=== PATIENT | male | born 1995 | race African-American/Black ===

== ENCOUNTER 2018-01-29 22:55 | Emergency (ER) | payer OTHER ==
[2018-01-29] MEDS ORDERED: ONDANSETRON 4 MG/2 ML VIAL ONE (23:18)
[2018-01-29] MEDS ORDERED: FAMOTIDINE 20 MG/2 ML VIAL IV ONE (23:19)
[2018-01-29] MEDS ORDERED: NA CHLORIDE 0.9% 1,000 ML ONE (23:19)
[2018-01-30 00:07] LABS: ALT/SGPT 22 U/L (12-78); AST/SGOT 18 U/L (15-37); Albumin 3.5 g/dL (3.4-5.0); Alkaline Phosphatase 92 U/L (45-117); BUN Blood Urea Nitrogen 11 mg/dL (7-18); Bicarbonate 28 mmol/L (21-32); Bilirubin Direct < 0.1 mg/dL (0-0.2); Bilirubin Total 0.2 mg/dL (0.2-1.0); Glucose Level 75 mg/dL (74-106); Lipase 84 U/L (73-393); Potassium 3.4 mmol/L (3.5-5.1); Protein, Total 6.8 g/dL (6.4-8.2); Sodium Level 147 mmol/L (136-145)
--- NOTE | 2018-01-30 01:27 | EDPHYS ---
Physician Documentation [facility] Name: Prashanth Bond Jr Age: 22 yrs Sex: Male : 1995 Arrival Date: 01/29/2018 Time: 22:58 Bed 20 Private MD: ED Physician Bertram Ambrosio HPI: 01/29 23:10 This 22 yrs old Black Male presents to ER via EMS with complaints of Abdominal Pain. cp 23:10 The patient presents with abdominal pain. cp 23:10 Onset: The symptoms/episode began/occurred yesterday. Associated signs and symptoms: cp Pertinent positives: nausea and vomiting, anorexia, Pertinent negatives: chest pain, constipation, diarrhea, fever, shortness of breath. Modifying factors: The symptoms are alleviated by nothing. Severity of pain: in the emergency department the pain is unchanged. The patient has experienced similar episodes in the past, several times. Patient admits to daily use of marijuana and reports taking Xanax yesterday. Historical: - Allergies: 23:25 No Known Allergies; ak1 - Home Meds: 23:25 None [Active]; ak1 - PMHx: 23:25 ADD/ADHD; ak1 - PSHx: 23:25 None; ak1 - Immunization history:: Adult Immunizations unknown. - Social history:: Smoking status: Patient uses tobacco products, smokes one-half pack cigarettes per day, Patient uses alcohol, 3 months [employer]. street drugs, marijuana. - Ebola Screening: : No symptoms or risks identified at this time. ROS: 23:15 Constitutional: Positive for poor PO intake, Negative for body aches, chills, fever. cp 23:15 Eyes: Negative for injury, pain, redness, and discharge. cp 23:15 ENT: Negative for drainage from ear(s), ear pain, sore throat, difficulty swallowing, difficulty handling secretions. 23:15 Cardiovascular: Negative for chest pain, edema, palpitations. 23:15 Respiratory: Negative for cough, shortness of breath, wheezing. 23:15 Abdomen/GI: Positive for abdominal pain, nausea and vomiting, anorexia, Negative for diarrhea, constipation, hematemesis, black/tarry stool, rectal bleeding. 23:15 Skin: Negative for cellulitis, rash. 23:15 Neuro: Negative for altered mental status, headache, weakness. 23:15 All other systems are negative. Exam: 23:25 Constitutional: The patient appears in no acute distress, alert, awake, cp non-diaphoretic, non-toxic, well developed, well nourished, uncomfortable. 23:25 Head/Face: Normocephalic, atraumatic. cp 23:25 Eyes: Periorbital structures: appear normal, Pupils: equal, round, and reactive to light and accomodation, Conjunctiva: normal, no exudate, no injection, Sclera: no appreciated abnormality, Lids and lashes: appear normal, bilaterally. 23:25 ENT: External ear(s): are unremarkable, Ear canal(s): are normal, clear, TM's: dullness, bilaterally, Nose: is normal, Mouth: Lips: dry, Oral mucosa: pink and intact, dry, Posterior pharynx: is normal, airway is patent. 23:25 Neck: ROM/movement: is normal, is supple, without pain, no range of motions limitations, no meningismus, no nuchal rigidity. 23:25 Chest/axilla: Inspection: normal, Palpation: is normal, no crepitus, no tenderness. 23:25 Cardiovascular: Rate: normal, Rhythm: regular. 23:25 Respiratory: the patient does not display signs of respiratory distress, Respirations: normal, no use of accessory muscles, no retractions, no splinting, no tachypnea, Breath sounds: are clear throughout, no decreased breath sounds, no stridor, no wheezing. 23:25 Abdomen/GI: Inspection: abdomen appears normal, Bowel sounds: active, all quadrants, Palpation: soft, in all quadrants, moderate abdominal tenderness, in all quadrants, rebound tenderness, is not appreciated, involuntary guarding, is not appreciated. 23:25 Back: pain, is absent, ROM is normal. 23:25 Skin: cellulitis, is not appreciated, no rash present. 23:25 Neuro: Orientation: to person, place \T\ time. Mentation: lucid, able to follow commands, Cerebellar function: is grossly normal, Motor: moves all fours, strength is normal, Sensation: no obvious gross deficits. Vital Signs: 23:20 BP 154 / 95; Pulse 77; Resp 24; Temp 99.0(O); Pulse Ox 100% on R/A; Weight 97.52 kg ak1 (R); Height 6 ft. 0 in. (182.88 cm) (R); Pain 8/10; 01/30 01:20 BP 145 / 77; Pulse 70; Resp 18; Pulse Ox 100% on R/A; Pain 0/10; ak1 01/29 23:20 Body Mass Index 29.16 (97.52 kg, 182.88 cm) ak1 MDM: 01/29 23:00 Differential diagnosis: appendicitis, cholecystitis, Cholelithiasis, gastritis, GI cp Bleed, pancreatitis, Peptic Ulcer Disease, Perf. Duodenal Ulcer, Perf. Gastric Ulcer. 23:01 Patient medically screened. cp 01/30 01:26 Data reviewed: vital signs, nurses notes, lab test result(s), radiologic studies, CT cp scan. 01:26 Response to treatment: the patient's symptoms have markedly improved after treatment, cp VSS. Nausea and vomiting resolved. Patient sleeping in exam room. Will discharge to home for continued monitoring. 01/29 23:00 Order name: Basic Metabolic Panel; Complete Time: 00:23 cp 01/29 23:00 Order name: Hepatic Function; Complete Time: 00:23 cp 01/29 23:00 Order name: Lipase; Complete Time: 00:23 cp 01/29 23:00 Order name: Magnesium; Complete Time: 00:23 cp 01/29 23:00 Order name: IV Saline Lock; Complete Time: 23:10 cp 01/30 00:05 Order name: CT Abd/Pelvis - W/Contrast: no oral contrast cp 01/30 00:50 Order name: NPO; Complete Time: 00:53 cp 01/30 01:26 Order name: PO challenge; Complete Time: 01:28 cp Administered Medications: 01/29 23:19 Drug: Zofran 4 mg Route: IVP; Site: right forearm; ak1 01/30 00:32 Follow up: Response: No adverse reaction ak1 01/29 23:20 Drug: Pepcid 20 mg Route: IVP; Site: right forearm; ak1 01/30 00:32 Follow up: Response: No adverse reaction ak1 01/29 23:20 Drug: NS 0.9% 1000 ml Route: IV; Rate: 1 bolus; Site: right forearm; ak1 01/30 00:33 Follow up: IV Status: Completed infusion ak1 Disposition: 02:51 Co-signature as Attending Physician, Bertram Ambrosio MD I agree with the assessment and tw4 plan of care. Attestation: The patient's history, exam findings, diagnostics, and a summary of any interventions or procedures was reviewed in detail with Rajeev GRACIA. Disposition: 01/30/18 01:27 Discharged to Home. Impression: Nausea and vomiting. - Condition is Stable. - Discharge Instructions: Nausea and Vomiting, Adult. - Prescriptions for Pepcid 20 mg Oral Tablet - take 1 tablet by ORAL route every 12 hours for 10 days; 20 tablet. promethazine 25 mg Oral Tablet - take 1 tablet by ORAL route every 6 hours As needed; 20 tablet. Phenergan 25 mg Rectal Suppository - insert 1 suppository by RECTAL route every 6 hours As needed; 12 suppository. - Medication Reconciliation Form, Thank You Letter, Antibiotic Education, Prescription Opioid Use form. - Follow up: Humble Nava MD; When: 2 - 3 days; Reason: Recheck today's complaints. - Problem is new. - Symptoms have improved. Signatures: Dispatcher [employer] [facility] Vilma Valadez RN RN ak1 Rajeev Simons PA PA cp Bertram Ambrosio MD MD tw4 Corrections: (The following items were deleted from the chart) 01/29 23:53 23:00 CBC+H.LAB.BRZ ordered. EDAL EDAL 23:53 23:00 Creatinine for Radiology+C.LAB.BRZ ordered. [facility] EDAL 01/30 01:37 01:27 01/30/2018 01:27 Discharged to Home. Impression: Nausea and vomiting. Condition ak1 is Stable. Forms are Medication Reconciliation Form, Thank You Letter, Antibiotic Education, Prescription Opioid Use. Follow up: Humble Nava; When: 2 - 3 days; Reason: Recheck today's complaints. Problem is new. Symptoms have improved. cp
--- NOTE | 2018-01-30 01:27 | ER ---
Nurse's Notes [facility] Name: Prashanth Bond Jr Age: 22 yrs Sex: Male : 1995 Arrival Date: 01/29/2018 Time: 22:58 Bed 20 Private MD: Diagnosis: Nausea and vomiting Presentation: 01/29 23:21 Presenting complaint: EMS states: pt with N/V and abd pain X2 days. pt admits to using ak1 Xanax yesterday and marijuana daily. pt seen in ER in 05/2017 for same s/s. pt stated last ETOH was 3 months [employer]. pt filled emesis bag en route to ER. Transition of care: patient was not received from another setting of care. Onset of symptoms was January 28, 2018. Risk Assessment: Do you want to hurt yourself or someone else? Patient reports no desire to harm self or others. Initial Sepsis Screen: Does the patient meet any 2 criteria? No. Patient's initial sepsis screen is negative. Does the patient have a suspected source of infection? No. Patient's initial sepsis screen is negative. Care prior to arrival: None. 23:21 Method Of Arrival: EMS: [facility] ak1 23:21 Acuity: ELIUD 3 ak1 Triage Assessment: 23:25 General: Appears uncomfortable, Behavior is agitated, anxious. Pain: Complains of pain ak1 in abdomen. EENT: No signs and/or symptoms were reported regarding the EENT system. Neuro: No deficits noted. Cardiovascular: No deficits noted. Respiratory: No deficits noted. GI: Abdomen is flat, Bowel sounds present X 4 quads. Reports lower abdominal pain, upper abdominal pain, nausea, vomiting. : No signs and/or symptoms were reported regarding the genitourinary system. Derm: No signs and/or symptoms reported regarding the dermatologic system. Musculoskeletal: No signs and/or symptoms reported regarding the musculoskeletal system. Historical: - Allergies: 23:25 No Known Allergies; ak1 - Home Meds: 23:25 None [Active]; ak1 - PMHx: 23:25 ADD/ADHD; ak1 - PSHx: 23:25 None; ak1 - Immunization history:: Adult Immunizations unknown. - Social history:: Smoking status: Patient uses tobacco products, smokes one-half pack cigarettes per day, Patient uses alcohol, 3 months [employer] drugs, marijuana. - Ebola Screening: : No symptoms or risks identified at this time. Screenin:26 Abuse screen: Denies threats or abuse. Denies injuries from another. Nutritional ak1 screening: No deficits noted. Tuberculosis screening: No symptoms or risk factors identified. Fall Risk None identified. Assessment: 23:28 Reassessment: Patient appears in no apparent distress at this time. No changes from ak1 previously documented assessment. see triage assessment. 23:28 GI: Abd is soft X 4 quads Abdomen is tender to palpation X 4 quads. ak1 01/30 00:47 Reassessment: pt rude in CT. pt returned and refused lab draw. pt demanding water, ak1 started drinking out of faucet. provider notified. 01:30 Reassessment: pt tolerated water, no vomiting noted. pt ambulated to restroom with ak1 steady gait. . Vital Signs: 01/29 23:20 BP 154 / 95; Pulse 77; Resp 24; Temp 99.0(O); Pulse Ox 100% on R/A; Weight 97.52 kg ak1 (R); Height 6 ft. 0 in. (182.88 cm) (R); Pain 8/10; 01/30 01:20 BP 145 / 77; Pulse 70; Resp 18; Pulse Ox 100% on R/A; Pain 0/10; ak1 01/29 23:20 Body Mass Index 29.16 (97.52 kg, 182.88 cm) ak1 ED Course: 01/29 22:58 Patient arrived in ED. ak1 22:59 Rajeev Simons PA is PHCP. cp 22:59 Bertram Ambrosio MD is Attending Physician. cp 23:10 Vilma Valadez, BROCK is Primary Nurse. ak1 23:23 Triage completed. ak1 23:25 Arm band placed on Patient placed in an exam room, on a stretcher, on pulse oximetry, ak1 Patient notified of wait time. 23:27 Patient has correct armband on for positive identification. Bed in low position. Call ak1 light in reach. Side rails up X2. Adult w/ patient. Pulse ox on. NIBP on. 23:27 Inserted saline lock: 20 gauge in right forearm, using aseptic technique. ak1 01/30 00:[address] via wheelchair. kw1 00:36 CT Abd/Pelvis - W/Contrast: no oral contrast In Process Unspecified. EDMS 00:37 CT completed. Patient tolerated procedure well. Patient moved back from CT. kw1 00:48 No provider procedures requiring assistance completed. ak1 01:27 Humble Nava MD is Referral Physician. cp 01:33 IV discontinued, intact, bleeding controlled, No redness/swelling at site. Pressure ak1 dressing applied. Administered Medications: 01/29 23:19 Drug: Zofran 4 mg Route: IVP; Site: right forearm; ak1 01/30 00:32 Follow up: Response: No adverse reaction ak1 01/29 23:20 Drug: Pepcid 20 mg Route: IVP; Site: right forearm; ak1 01/30 00:32 Follow up: Response: No adverse reaction ak1 01/29 23:20 Drug: NS 0.9% 1000 ml Route: IV; Rate: 1 bolus; Site: right forearm; ak1 01/30 00:33 Follow up: IV Status: Completed infusion ak1 Outcome: 01:27 Discharge ordered by . cp 01:33 Discharged to home ambulatory, with family. ak1 01:33 Condition: stable 01:33 Discharge instructions given to patient, family, Instructed on discharge instructions, follow up and referral plans. no drinking with medication, no driving heavy equipment, medication usage, Demonstrated understanding of instructions, follow-up care, medications, Prescriptions given X 3. 01:37 Patient left the ED. ak1 Signatures: Dispatcher [employer] EDMS Vilma Valadez RN RN ak1 Rajeev Simons PA PA Afia Fung kw1
--- NOTE | 2018-01-30 08:21 | RAD REPORT ---
EXAM DESCRIPTION: CTAbdomen Pelvis W Contrast - 01/30/2018 6:02 am CLINICAL HISTORY: Abdominal pain. Abd pain;Nausea / vomiting COMPARISON: Abdomen Pelvis W Contrast dated 03/02/2017; CT ABD PELVIS W CONTRAST dated 01/27/2015 TECHNIQUE: Biphasic CT imaging of the abdomen and pelvis was performed with 100 ml non-ionic IV cont rast. All CT scans are performed using dose optimization technique as appropriate and may include automated exposure control or mA/KV adjustment according to patient size. FINDINGS: The lung bases are clear. The liver, spleen, pancreas, adrenal glands and kidneys are within normal limits. No bowel obstruction, free air, free fluid or abscess. The appendix is normal. No evidence of signi ficant lymphadenopathy. No suspicious bony findings. IMPRESSION: No acute intra-abdominal or pelvic finding.
== END 2018-01-30 01:37 | disposition home or self-care (01) ==
LOC: ER 22:55
DX: R11.2 Nausea with vomiting, unspecified (principal); F17.210 Nicotine dependence, cigarettes, uncomplicated
CPT/HCPCS: 36415; 74177; 80048; 80076; 83690; 83735; 96361; 96374; 96375; 99284; J2405; J7030; Q9967

== ENCOUNTER 2018-10-09 00:25 | Emergency (ER) | payer OTHER, SELFPAY ==
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
[2018-10-09] MEDS ORDERED: TETANUS & DIPHTHERIA TOX,ADULT 0.5 ML VIAL ONE (02:19)
[2018-10-09] MEDS ORDERED: MUPIROCIN 2% OINT 22GM TUBE TOP ONE (02:19)
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
== END 2018-10-09 02:21 | disposition home or self-care (01) ==
LOC: ER 00:25
DX: S80.211A Abrasion, right knee, initial encounter (principal); S80.01XA Contusion of right knee, initial encounter; Y04.0XXA Assault by unarmed brawl or fight, initial encounter; F90.9 Attention-deficit hyperactivity disorder, unspecified type; F17.210 Nicotine dependence, cigarettes, uncomplicated; Z23 Encounter for immunization
CPT/HCPCS: 90471; 90714; 99284

== ENCOUNTER 2018-11-08 08:09 | Emergency (ER) | payer SELFPAY ==
--- NOTE | 2018-11-08 08:56 | ER ---
Nurse's Notes [facility] Name: Prashanth Bond Jr Age: 23 yrs Sex: Male : 1995 Arrival Date: 11/08/2018 Time: 08:10 Bed Waiting Private MD: Unknown, Unknown Diagnosis: Presentation: 11/08 08:33 Presenting complaint: Patient states: has had intermittent abd pain X 2-3 months, this iw episode started at 0500 this morning, also has nausea and vomiting with the pain. Transition of care: patient was not received from another setting of care. Onset of symptoms was August 2018. Risk Assessment: Do you want to hurt yourself or someone else? Patient reports no desire to harm self or others. Initial Sepsis Screen: Does the patient meet any 2 criteria? No. Patient's initial sepsis screen is negative. Does the patient have a suspected source of infection? No. Patient's initial sepsis screen is negative. Care prior to arrival: None. 08:33 Method Of Arrival: Ambulatory iw 08:33 Acuity: ELIUD 3 iw Historical: - Allergies: 08:35 No Known Allergies; iw - Home Meds: 08:35 None [Active]; iw - PMHx: 08:35 ADD/ADHD; iw - PSHx: 08:35 None; iw - Immunization history:: Adult Immunizations not immunized. - Social history:: Smoking status: Patient uses tobacco products, smokes one-half pack cigarettes per day, Patient uses alcohol, occasionally. street drugs, marijuana. - Ebola Screening: : Patient negative for fever greater than or equal to 101.5 degrees Fahrenheit, and additional compatible Ebola Virus Disease symptoms Patient denies exposure to infectious person Patient denies travel to an Ebola-affected area in the 21 days before illness onset No symptoms or risks identified at this time. Vital Signs: 08:34 BP 127 / 80; Pulse 74; Resp 16; Temp 97.9(TE); Pulse Ox 100% on R/A; Weight 86.18 kg; iw Height 6 ft. 2 in. (187.96 cm); Pain 8/10; 08:34 Body Mass Index 24.39 (86.18 kg, 187.96 cm) iw ED Course: 08:10 Patient arrived in ED. ag5 08:11 Unknown, Unknown is Private Physician. ag5 08:14 Dima Gutierrez PA is PHCP. jr8 08:14 Ranjit Davis MD is Attending Physician. jr8 08:34 Triage completed. iw 08:35 Arm band placed on. iw 08:56 Alix Astorga RN is Primary Nurse. iw Administered Medications: No medications were administered Outcome: 08:55 Eloped from patient exam room. iw 08:55 Condition: good 08:56 Patient left the ED. iw Signatures: Alix Astorga RN RN Dima Gutierrez PA PA jr8 JoyceLuis M ag5
== END 2018-11-08 08:56 | disposition left against medical advice (07) ==
LOC: ER 08:09
DX: R10.9 Unspecified abdominal pain (principal); R11.2 Nausea with vomiting, unspecified; F90.9 Attention-deficit hyperactivity disorder, unspecified type; F17.210 Nicotine dependence, cigarettes, uncomplicated; Z53.21 Procedure and treatment not carried out due to patient leaving prior to being seen by health care provider
CPT/HCPCS: 99281

== ENCOUNTER 2019-05-23 09:20 | Emergency (ER) | payer SELFPAY ==
[2019-05-23] MEDS ORDERED: FAMOTIDINE 20 MG/2 ML VIAL IV ONE (10:21)
[2019-05-23] MEDS ORDERED: NA CHLORIDE 0.9% 500 ML ONE (10:21)
[2019-05-23] MEDS ORDERED: MORPHINE 4 MG/ML SYR ONE (10:21)
[2019-05-23] MEDS ORDERED: ONDANSETRON 4 MG/2 ML VIAL ONE (10:21)
[2019-05-23 10:37] LABS: Absolute Lymphocytes (CBC) 2.3 K/uL (0.7-4.9); Hematocrit 40.7 % (39.6-49.0); Lymphocytes % 22.2 % (15.3-44.8); RBC Red Blood Cell Count 4.84 M/uL (4.33-5.43)
--- NOTE | 2019-05-23 10:57 | RAD REPORT ---
EXAM DESCRIPTION: RAD - Abdomen Acute Series - 05/23/2019 10:51 am CLINICAL HISTORY: Abdominal pain COMPARISON: None. FINDINGS: Lungs are clear. Heart size and vessels are normal. No pleural effusion, pneumothorax or o ther acute cardiopulmonary process seen. Bowel gas pattern is nonspecific. No bowel obstruction, free air or other acute findings. No suspicio us calcifications. No other suspicious for significant findings. IMPRESSION: Negative acute abdomen series.
[2019-05-23 11:01] LABS: ALT/SGPT 30 U/L (12-78); AST/SGOT 20 U/L (15-37); Albumin 4.2 g/dL (3.4-5.0); Alkaline Phosphatase 85 U/L (45-117); BUN Blood Urea Nitrogen 14 mg/dL (7-18); Bicarbonate 30 mmol/L (21-32); Bilirubin Direct < 0.1 mg/dL (0-0.2); Bilirubin Total 0.2 mg/dL (0.2-1.0); Glucose Level 103 mg/dL (74-106); Lipase 48 U/L (73-393); Potassium 3.9 mmol/L (3.5-5.1); Protein, Total 7.9 g/dL (6.4-8.2); Sodium Level 141 mmol/L (136-145)
--- NOTE | 2019-05-23 11:17 | ER ---
Nurse's Notes [facility] Name: Prashanth Bond Jr Age: 23 yrs Sex: Male : 1995 Arrival Date: 05/23/2019 Time: 09:24 Bed 18 Private MD: Diagnosis: Functional dyspepsia;Abdominal tenderness;Gastritis, unspecified Presentation: 05/23 09:38 Presenting complaint: Patient states: vomiting, abd pain started at 6 this am, has had iw similar episodes in past, states he's been to multiple doctors but there has not been a diagnosis, was told it might be from smoking marijuana but he hasn't smoked all this week. Transition of care: patient was not received from another setting of care. Onset of symptoms was May 23, 2019. Risk Assessment: Do you want to hurt yourself or someone else? Patient reports no desire to harm self or others. Initial Sepsis Screen: Does the patient meet any 2 criteria? No. Patient's initial sepsis screen is negative. Does the patient have a suspected source of infection? No. Patient's initial sepsis screen is negative. Care prior to arrival: None. 09:38 Method Of Arrival: Ambulatory iw 09:38 Acuity: ELIUD 3 iw Historical: - Allergies: 09:40 No Known Allergies; iw - Home Meds: 09:40 None [Active]; iw - PMHx: 09:40 ADD/ADHD; iw - PSHx: 09:40 None; iw - Immunization history:: Adult Immunizations not up to date. - Coronavirus screen:: The patient has NOT traveled to [place], [place], or [place] in the past 14 days. Proceed with normal triage process as indicated. - Social history:: Smoking status: Patient reports the use of cigarette tobacco products, Patient uses street drugs, marijuana. - Family history:: not pertinent. - Ebola Screening: : Patient negative for fever greater than or equal to 101.5 degrees Fahrenheit, and additional compatible Ebola Virus Disease symptoms Patient denies exposure to infectious person Patient denies travel to an Ebola-affected area in the 21 days before illness onset No symptoms or risks identified at this time. Screenin:38 Abuse screen: Denies threats or abuse. Denies injuries from another. Nutritional ph screening: No deficits noted. Tuberculosis screening: No symptoms or risk factors identified. Fall Risk None identified. Assessment: 10:00 General: Appears in no apparent distress. uncomfortable, slender, well groomed, well ph developed, well nourished, Behavior is calm, cooperative, appropriate for age, Denies fever, chills. Pain: Complains of pain in epigastric area. Neuro: Level of Consciousness is awake, alert, obeys commands, Oriented to person, place, time, situation. Cardiovascular: Capillary refill < 3 seconds in bilateral fingers Patient's skin is warm and dry. Respiratory: Airway is patent Respiratory effort is even, unlabored, Respiratory pattern is regular, symmetrical. GI: Abdomen is flat, non-distended, Bowel sounds present X 4 quads. Reports upper abdominal pain, nausea, vomiting. Derm: Skin is intact, is healthy with good turgor, Skin is pink, warm \T\ dry. Musculoskeletal: Circulation, motion, and sensation intact. Range of motion: intact in all extremities. 11:35 Reassessment: Patient appears in no apparent distress at this time. Patient and/or ph family updated on plan of care and expected duration. Pain level reassessed. Patient is alert, oriented x 3, equal unlabored respirations, skin warm/dry/pink. Pt reports that pain and nausea have decreased, d/c home w/ SO. Vital Signs: 09:40 BP 157 / 82; Pulse 66; Resp 18; Temp 97.3; Pulse Ox 100% on R/A; Weight 86.18 kg; iw Height 6 ft. 2 in. (187.96 cm); Pain 7/10; 10:30 BP 146 / 76; Pulse 57; Resp 18; Pulse Ox 99% on R/A; ph 11:34 BP 142 / 74; Pulse 59; Resp 18; Temp 97.8; Pulse Ox 100% on R/A; Pain 4/10; ph 09:40 Body Mass Index 24.39 (86.18 kg, 187.96 cm) iw ED Course: 09:24 Patient arrived in ED. ag5 09:40 Triage completed. iw 09:40 Arm band placed on. iw 09:42 Simran Pinto RN is Primary Nurse. ph 09:42 Rajeev Carter MD is Attending Physician. rey 10:25 Initial lab(s) drawn, by me, sent to lab. Inserted saline lock: 20 gauge in left dh3 antecubital area, using aseptic technique. Blood collected. 10:46 Abdomen Acute Series XRAY In Process Unspecified. EDSD 11:16 Ebenezer Garcia MD is Referral Physician. [facility] 11:38 Patient has correct armband on for positive identification. Bed in low position. Call ph light in reach. Side rails up X 1. Pulse ox on. NIBP on. 11:38 No provider procedures requiring assistance completed. IV discontinued, intact, ph bleeding controlled, No redness/swelling at site. Pressure dressing applied. Administered Medications: 10:28 Drug: Zofran 4 mg Route: IVP; Site: left antecubital; ph 11:39 Follow up: Response: No adverse reaction; Nausea is decreased ph 10:30 Drug: Pepcid 20 mg Route: IVP; Site: left antecubital; ph 11:39 Follow up: Response: No adverse reaction ph 10:30 Drug: morphine 4 mg Route: IVP; Site: left antecubital; ph 11:39 Follow up: Response: No adverse reaction; Pain is decreased ph Outcome: 11:16 Discharge ordered by . [facility] 11:38 Discharged to home ambulatory, with significant other. ph 11:38 Condition: good 11:38 Discharge instructions given to patient, Instructed on discharge instructions, follow up and referral plans. medication usage, Demonstrated understanding of instructions, follow-up care, medications, Prescriptions given X 3. 11:40 Patient left the ED. ph Signatures: Dispatcher [employer] EDSD Rajeev Carter MD MD cha Williams, Irene, RN BROCK Simran Pinto RN RN ph Herrera, Deanna formerly [facility] Luis M Cook [facility]
--- NOTE | 2019-05-23 11:17 | EDPHYS ---
Physician Documentation [facility] Name: Prashanth Bond Jr Age: 23 yrs Sex: Male : 1995 Arrival Date: 05/23/2019 Time: 09:24 Bed 18 Private MD: ED Physician Rajeev Carter HPI: 05/23 10:46 This 23 yrs old Black Male presents to ER via Ambulatory with complaints of Vomiting. rey 10:46 The patient presents to the emergency department with nausea, abdominal pain. Onset: rey The symptoms/episode began/occurred 3 day(s) ago. Possible causes: unknown. The symptoms are aggravated by nothing. The symptoms are alleviated by nothing. Associated signs and symptoms: The patient has no apparent associated signs or symptoms. Severity of symptoms: At their worst the symptoms were moderate in the emergency department the symptoms are unchanged. The patient has experienced similar episodes in the past, multiple times. Historical: - Allergies: 09:40 No Known Allergies; iw - Home Meds: 09:40 None [Active]; iw - PMHx: :40 ADD/ADHD; iw - PSHx: 09:40 None; iw - Immunization history:: Adult Immunizations not up to date. - Coronavirus screen:: The patient has NOT traveled to [place], [place], or [place] in the past 14 days. Proceed with normal triage process as indicated. - Social history:: Smoking status: Patient reports the use of cigarette tobacco products, Patient uses street drugs, marijuana. - Family history:: not pertinent. - Ebola Screening: : Patient negative for fever greater than or equal to 101.5 degrees Fahrenheit, and additional compatible Ebola Virus Disease symptoms Patient denies exposure to infectious person Patient denies travel to an Ebola-affected area in the 21 days before illness onset No symptoms or risks identified at this time. ROS: 10:46 Constitutional: Negative for fever, chills, and weight loss, Eyes: Negative for injury, rey pain, redness, and discharge, ENT: Negative for injury, pain, and discharge, Neck: Negative for injury, pain, and swelling, Cardiovascular: Negative for chest pain, palpitations, and edema, Respiratory: Negative for shortness of breath, cough, wheezing, and pleuritic chest pain, Back: Negative for injury and pain, : Negative for injury, bleeding, discharge, and swelling, MS/Extremity: Negative for injury and deformity, Skin: Negative for injury, rash, and discoloration, Neuro: Negative for headache, weakness, numbness, tingling, and seizure, Psych: Negative for depression, anxiety, suicide ideation, homicidal ideation, and hallucinations, Allergy/Immunology: Negative for hives, rash, and allergies, Endocrine: Negative for neck swelling, polydipsia, polyuria, polyphagia, and marked weight changes, Hematologic/Lymphatic: Negative for swollen nodes, abnormal bleeding, and unusual bruising. 10:46 Abdomen/GI: Positive for abdominal pain, of the epigastric area, right upper quadrant and left upper quadrant. Exam: 10:46 Constitutional: This is a well developed, well nourished patient who is awake, alert, rey and in no acute distress. Head/Face: Normocephalic, atraumatic. Eyes: Pupils equal round and reactive to light, extra-ocular motions intact. Lids and lashes normal. Conjunctiva and sclera are non-icteric and not injected. Cornea within normal limits. Periorbital areas with no swelling, redness, or edema. ENT: Nares patent. No nasal discharge, no septal abnormalities noted. Tympanic membranes are normal and external auditory canals are clear. Oropharynx with no redness, swelling, or masses, exudates, or evidence of obstruction, uvula midline. Mucous membranes moist. Neck: Trachea midline, no thyromegaly or masses palpated, and no cervical lymphadenopathy. Supple, full range of motion without nuchal rigidity, or vertebral point tenderness. No Meningismus. Chest/axilla: Normal chest wall appearance and motion. Nontender with no deformity. No lesions are appreciated. Cardiovascular: Regular rate and rhythm with a normal S1 and S2. No gallops, murmurs, or rubs. Normal PMI, no JVD. No pulse deficits. Respiratory: Lungs have equal breath sounds bilaterally, clear to auscultation and percussion. No rales, rhonchi or wheezes noted. No increased work of breathing, no retractions or nasal flaring. Back: No spinal tenderness. No costovertebral tenderness. Full range of motion. Male : Normal genitalia with no discharge or lesions. Skin: Warm, dry with normal turgor. Normal color with no rashes, no lesions, and no evidence of cellulitis. MS/ Extremity: Pulses equal, no cyanosis. Neurovascular intact. Full, normal range of motion. Neuro: Awake and alert, GCS 15, oriented to person, place, time, and situation. Cranial nerves II-XII grossly intact. Motor strength 5/5 in all extremities. Sensory grossly intact. Cerebellar exam normal. Normal gait. Psych: Awake, alert, with orientation to person, place and time. Behavior, mood, and affect are within normal limits. 10:46 Abdomen/GI: Inspection: abdomen appears normal, Bowel sounds: normal, Palpation: moderate abdominal tenderness, in the epigastric area, right upper quadrant and left upper quadrant, Liver: no appreciated palpable abnormalities, Hernia: not appreciated. Vital Signs: 09:40 BP 157 / 82; Pulse 66; Resp 18; Temp 97.3; Pulse Ox 100% on R/A; Weight 86.18 kg; iw Height 6 ft. 2 in. (187.96 cm); Pain 7/10; 10:30 BP 146 / 76; Pulse 57; Resp 18; Pulse Ox 99% on R/A; ph 11:34 BP 142 / 74; Pulse 59; Resp 18; Temp 97.8; Pulse Ox 100% on R/A; Pain 4/10; ph 09:40 Body Mass Index 24.39 (86.18 kg, 187.96 cm) iw MDM: 09:42 Patient medically screened. [facility] 10:48 Data reviewed: vital signs, nurses notes, lab test result(s), radiologic studies. [facility] 05/23 10:04 Order name: Basic Metabolic Panel; Complete Time: 11:03 [facility] 05/23 10:04 Order name: CBC with Diff; Complete Time: 10:46 [facility] 05/23 10:04 Order name: Creatinine for Radiology; Complete Time: 11:03 [facility] 05/23 10:04 Order name: Hepatic Function; Complete Time: 11:03 [facility] 05/23 10:04 Order name: Lipase; Complete Time: 11:03 [facility] 05/23 10:05 Order name: Abdomen Acute Series XRAY; Complete Time: 11:03 [facility] 05/23 10:04 Order name: IV Saline Lock; Complete Time: 10:37 [facility] 05/23 10:04 Order name: Labs collected and sent; Complete Time: 10:38 [facility] Administered Medications: 10:28 Drug: Zofran 4 mg Route: IVP; Site: left antecubital; ph 11:39 Follow up: Response: No adverse reaction; Nausea is decreased ph 10:30 Drug: Pepcid 20 mg Route: IVP; Site: left antecubital; ph 11:39 Follow up: Response: No adverse reaction ph 10:30 Drug: morphine 4 mg Route: IVP; Site: left antecubital; ph 11:39 Follow up: Response: No adverse reaction; Pain is decreased ph Disposition: 05/23/19 11:16 Discharged to Home. Impression: Functional dyspepsia, Abdominal tenderness, Gastritis, unspecified. - Condition is Stable. - Discharge Instructions: Abdominal Pain, Adult, Gastritis, Adult, Indigestion, Nausea and Vomiting, Adult, Abdominal Pain, Adult, [id number]. - Prescriptions for Bentyl 20 mg Oral Tablet - take 1 tablet by ORAL route every 6 hours As needed; 20 tablet. Pepcid 20 mg Oral Tablet - take 1 tablet by ORAL route every 12 hours for 10 days; 20 tablet. Zofran 4 mg Oral Tablet - take 1 tablet by ORAL route every 12 hours As needed; 20 tablet. - Medication Reconciliation Form, Thank You Letter, Antibiotic Education, Prescription Opioid Use, Work release form form. - Follow up: Private Physician; When: 2 - 3 days; Reason: Recheck today's complaints, Continuance of care, Re-evaluation by your physician. Follow up: Ebenezer Garcia MD; When: 2 - 3 days; Reason: Recheck today's complaints, Re-evaluation by your physician. - Problem is new. - Symptoms have improved. Signatures: Dispatcher [employer] EDRajeev Barriga MD MD cha Williams, Irene, RN RN Simran Bourgeois RN RN ph Corrections: (The following items were deleted from the chart) 11:40 11:16 05/23/2019 11:16 Discharged to Home. Impression: Functional dyspepsia; Abdominal ph tenderness; Gastritis, unspecified. Condition is Stable. Forms are Medication Reconciliation Form, Thank You Letter, Antibiotic Education, Prescription Opioid Use. Follow up: Private Physician; When: 2 - 3 days; Reason: Recheck today's complaints, Continuance of care, Re-evaluation by your physician. Follow up: Ebenezer Garcia; When: 2 - 3 days; Reason: Recheck today's complaints, Re-evaluation by your physician. Problem is new. Symptoms have improved. rey
[2019-05-23 11:59] VITALS: BP 142/74; TEMP 97.8; O2SAT 100
== END 2019-05-23 11:40 | disposition home or self-care (01) ==
LOC: ER 09:20
DX: K30 Functional dyspepsia (principal); K29.70 Gastritis, unspecified, without bleeding; Z72.0 Tobacco use
CPT/HCPCS: 36415; 74022; 80048; 80076; 83690; 85025; 96374; 96375; 99284; J2405; J7040

== ENCOUNTER 2021-06-28 12:35 | Emergency (ER) | payer SELFPAY ==
--- OUTSIDE RECORDS SUMMARY | 2021-06-28 12:37 | XMS REPORT | Continuity of Care Document ---
:1995 Author Organization [facility] t Address [address] [place] [address] Dr. Sims [address] [place] [id number] Care Team Providers Name Role Phone MARYAM Attending Clinician Unavailable Problems This patient has no known problems. Allergies, Adverse Reactions, Alerts Allergy Allergy Status Severity Reaction(s) Onset Inactive Treating Comm ents Source Name Type Date Date Clinician NO KNOWN Drug [facility]ations This patient has no known medications. Procedures This patient has no known procedures. Encounters Start End Encounter Admission Attending Care Care Encounter Source Date/Time Date/Time Type Type Clinicians Facility Department ID 2020-01-21 2020-01-21 Outpatient X MARYAM [facility]BRUNO ERT [id number] 07:45:00 07:45:00 YANIV [facility] Results This patient has no known results.
[2021-06-28] MEDS ORDERED: METOCLOPRAMIDE 10 MG/2mL INJ ONE (12:49)
[2021-06-28] MEDS ORDERED: NA CHLORIDE 0.9% 1,000 ML ONE (12:50)
[2021-06-28] MEDS ORDERED: MEPERIDINE HCL 25 MG/ML SYR ONE (12:50)
[2021-06-28] MEDS ORDERED: LIDOCAINE VISCOUS 2% SOLN 15 ML UDC ONE (12:50)
[2021-06-28] MEDS ORDERED: MAGNES/ALUMIN/SIMET 30ML UCUP ONE (12:51)
[2021-06-28 13:15] LABS: ALT/SGPT 33 U/L (12-78); Alkaline Phosphatase 80 U/L (45-117); BUN Blood Urea Nitrogen 13 mg/dL (7-18); Bicarbonate 27 mmol/L (21-32); Glucose Level 90 mg/dL (74-106); Sodium Level 140 mmol/L (136-145)
[2021-06-28 13:16] LABS: AST/SGOT 31 U/L (15-37); Albumin 4.1 g/dL (3.4-5.0); Bilirubin Direct < 0.1 mg/dL (0-0.2); Bilirubin Total 0.3 mg/dL (0.2-1.0); Lipase 58 U/L (73-393); Potassium 3.9 mmol/L (3.5-5.1); Protein, Total 8.1 g/dL (6.4-8.2)
[2021-06-28 13:18] LABS: Hematocrit 39.5 % (39.6-49.0); Lymphocytes % 56.2 % (15.3-44.8); MPV 8.7 fL (7.6-11.3); RBC Red Blood Cell Count 4.75 M/uL (4.33-5.43)
--- NOTE | 2021-06-28 13:58 | EDPHYS ---
Physician Documentation [facility] Name: Prashanth Bond Jr Age: 26 yrs Sex: Male : 1995 Arrival Date: 06/28/2021 Time: 12:37 Bed 2 Private MD: ED Physician Ranjit Davis HPI: 06/28 13:51 This 26 yrs old Black Male presents to ER via EMS with complaints of Abdominal Pain, rn nausea/vomiting. 13:51 The patient presents with abdominal pain in the epigastric area, in the upper abdomen. rn Onset: The symptoms/episode began/occurred this morning. The symptoms do not radiate. Associated signs and symptoms: Pertinent positives: nausea and vomiting, Pertinent negatives: blood in stools, fever, hematuria, shortness of breath, testicular pain, vomiting blood. The symptoms are described as intermittent, sharp. Modifying factors: The symptoms are alleviated by nothing, the symptoms are aggravated by touching the area. Severity of pain: At its worst the pain was moderate in the emergency department the pain is unchanged. The patient has experienced similar episodes in the past, chronically. The patient has not recently seen a physician. Pt reports chronic upper abd pain and nausea/vomiting, has had multiple times before with multiple ER visits, no clear diagnosis, told to stop smoking. In nursing home, woke up vomiting and with upper abd pain, brought in for eval. No hematemesis. No trauma. No blood in stool. Reports feels identical to previous episodes. . Historical: - Allergies: 12:45 No Known Allergies; ag7 - Home Meds: 12:45 None [Active]; ag7 - PMHx: 12:45 ADD/ADHD; chronic nausea and vomiting; ag7 - PSHx: 12:45 None; ag7 - Immunization history:: Adult Immunizations up to date. - Social history:: Smoking status: Patient denies any tobacco usage or history of. Patient uses street drugs, marijuana. - Family history:: not pertinent. - Hospitalizations: : No recent hospitalization is reported. ROS: 13:51 Constitutional: Negative for fever, chills, and weight loss, Eyes: Negative for injury, rn pain, redness, and discharge, Neck: Negative for injury, pain, and swelling, Cardiovascular: Negative for chest pain, palpitations, and edema, Respiratory: Negative for shortness of breath, cough, wheezing, and pleuritic chest pain, Abdomen/GI: + abd pain and nausea/vomiting Back: Negative for injury and pain, : Negative for injury, bleeding, discharge, and swelling, MS/Extremity: Negative for injury and deformity, Skin: Negative for injury, rash, and discoloration, Neuro: Negative for headache, weakness, numbness, tingling, and seizure. Exam: 13:51 Constitutional: This is a well developed, well nourished patient who is awake, alert, rn tearful, handcuffed Head/Face: Normocephalic, atraumatic. Eyes: Periorbital areas with no swelling, redness, or edema. ENT: MMM Neck: Trachea midline, no thyromegaly or masses palpated, and no cervical lymphadenopathy. Supple, full range of motion without nuchal rigidity, or vertebral point tenderness. No Meningismus. Cardiovascular: Regular rate and rhythm. No pulse deficits. Respiratory: No increased work of breathing, no retractions or nasal flaring. Abdomen/GI: soft, + epigastric tenderness, no rebound Skin: Warm, dry MS/ Extremity: Pulses equal, no cyanosis. Neuro: Awake and alert, GCS 15 Vital Signs: 12:41 BP 136 / 124; Pulse 81; Resp 20; Temp 99.0; Pulse Ox 100% on R/A; Weight 95.25 kg; ag7 Height 6 ft. 3 in. (190.50 cm); Pain 10/10; 13:15 BP 117 / 69; Pulse 55; Resp 20; Pulse Ox 96% on R/A; ke1 13:18 Pain 2/10; ke1 14:17 BP 125 / 73; Pulse 55; Resp 17; Pulse Ox 100% on R/A; ke1 12:41 Body Mass Index 26.25 (95.25 kg, 190.50 cm) ag7 MDM: 12:37 Patient medically screened. rn 13:51 Differential diagnosis: gastritis, gastroesophageal reflux disease, non-specific abd rn pain, pancreatitis, Peptic Ulcer Disease, chronic abd pain, cyclical vomiting syndrome. Data reviewed: vital signs, nurses notes, lab test result(s), and as a result, I will discharge patient. Counseling: I had a detailed discussion with the patient and/or guardian regarding: the historical points, exam findings, and any diagnostic results supporting the discharge/admit diagnosis, lab results, the need for outpatient follow up, to return to the emergency department if symptoms worsen or persist or if there are any questions or concerns that arise at home. Response to treatment: the patient's symptoms have markedly improved after treatment, sleeping comfortably, no further pain or emesis, and as a result, I will discharge patient. Special discussion: Based on the patient's Hx, exam, and Dx evaluation, there is no indication for emergent surgery or inpatient Tx. It is understood by the patient/guardian that if the Sx's persist or worsen they need to return immediately for re-evaluation. I discussed with the patient/guardian in detail that at this point there is no indication for admission to the hospital. It is understood, however, that if the symptoms persist or worsen the patient needs to return immediately for re-evaluation. 06/28 12:42 Order name: Basic Metabolic Panel; Complete Time: 13:51 rn 06/28 12:42 Order name: CBC with Diff; Complete Time: 13:51 rn 06/28 12:42 Order name: Hepatic Function; Complete Time: 13:51 rn 06/28 12:42 Order name: Lipase; Complete Time: 13:51 rn 06/28 12:54 Order name: Glucose, Ancillary Testing; Complete Time: 13:51 EDMS 06/28 12:42 Order name: IV Saline Lock; Complete Time: 12:47 rn 06/28 12:42 Order name: Labs collected and sent; Complete Time: 12:47 rn 06/28 12:42 Order name: Cardiac monitoring; Complete Time: 12:47 rn 06/28 12:57 Order name: Labs - recollect needed: recollect cbc hemolyzed; Complete Time: 13:12 eb Administered Medications: 12:55 Drug: Reglan (metoCLOPramide) 10 mg Route: IVP; Site: right antecubital; ke1 13:19 Follow up: Response: Nausea is decreased; Vomiting decreased ke1 12:55 Drug: Demerol (meperidine) 25 mg Route: IVP; Site: right antecubital; ke1 13:18 Follow up: Pain 2/10 Adult; Response: Pain is decreased ke1 12:55 Drug: NS 0.9% 1000 ml Route: IV; Rate: 1000 ml; Site: right antecubital; ke1 14:00 Follow up: IV Status: Completed infusion ke1 12:55 Drug: GI Cocktail without - (Maalox Suspension 30 ml, Lidocaine Liquid 2 % 15 ke1 ml) Route: PO; 13:19 Follow up: Response: Nausea is decreased; Vomiting decreased ke1 Disposition Summary: 06/28/21 13:57 Discharge Ordered Location: Home rn Problem: chronic rn Symptoms: have improved rn Condition: Stable rn Diagnosis - Upper abdominal pain, unspecified rn - Vomiting rn Followup: rn - With: Private Physician - When: As needed - Reason: Recheck today's complaints, Re-evaluation by your physician Discharge Instructions: - Discharge Summary Sheet rn - Abdominal Pain, Adult rn - Gastritis, Adult rn - Vomiting, Adult rn - Cyclic Vomiting Syndrome, Adult rn Forms: - Medication Reconciliation Form rn - Thank You Letter rn - Antibiotic contract attorney - Prescription Opioid Use rn Signatures: Dispatcher [employer] EDRanjit Márquez MD MD rn Botello, Elizabeth eb Ebrottie, Kouassi RN RN ke1 Essence Lira, RN RN ag7
--- NOTE | 2021-06-28 13:58 | ER ---
Nurse's Notes [facility] Name: Prashanth Bond Jr Age: 26 yrs Sex: Male : 1995 Arrival Date: 06/28/2021 Time: 12:37 Bed 2 Private MD: Diagnosis: Upper abdominal pain, unspecified;Vomiting Presentation: 06/28 12:41 Chief complaint: Patient states: The patient arrived by EMS with complaints of abdomen ag7 pain , nausea, and vomiting that started at 1210. Coronavirus screen: Client denies travel out of the [place] in the last 14 days. At this time, the client does not indicate any symptoms associated with coronavirus-19. Ebola Screen: No symptoms or risks identified at this time. Initial Sepsis Screen: Does the patient meet any 2 criteria? No. Patient's initial sepsis screen is negative. Does the patient have a suspected source of infection? No. Patient's initial sepsis screen is negative. Risk Assessment: Do you want to hurt yourself or someone else? Patient reports no desire to harm self or others. Onset of symptoms was June 28, 2021. 12:41 Method Of Arrival: [facility] ag7 12:41 Acuity: ELIUD 3 ag7 Triage Assessment: 12:47 General: Appears in no apparent distress. Behavior is cooperative, agitated. Pain: ag7 Complains of pain in abdomen. Historical: - Allergies: 12:45 No Known Allergies; ag7 - Home Meds: 12:45 None [Active]; ag7 - PMHx: 12:45 ADD/ADHD; chronic nausea and vomiting; ag7 - PSHx: 12:45 None; ag7 - Immunization history:: Adult Immunizations up to date. - Social history:: Smoking status: Patient denies any tobacco usage or history of. Patient uses street drugs, marijuana. - Family history:: not pertinent. - Hospitalizations: : No recent hospitalization is reported. Screenin:20 Abuse screen: Denies threats or abuse. Nutritional screening: No deficits noted. ke1 Tuberculosis screening: No symptoms or risk factors identified. Fall Risk No fall in past 12 months (0 pts). No secondary diagnosis (0 pts). IV access (20 points). Ambulatory Aid- None/Bed Rest/Nurse Assist (0 pts). Gait- Normal/Bed Rest/Wheelchair (0 pts) Mental Status- Oriented to own ability (0 pts). Total Mustafa Fall Scale indicates No Risk (0-24 pts). Assessment: 12:45 General: Appears distressed, uncomfortable, Behavior is crying. Pain: Complains of pain ke1 in abdomen Pain does not radiate. Pain currently is 10 out of 10 on a pain scale. Quality of pain is described as sharp, Is continuous, Alleviated by nothing. Noted to be crying, grimacing, Goal of pain control is to be pain free. Neuro: Level of Consciousness is awake, alert, Oriented to person, place, time, situation. Cardiovascular: Reports nausea, vomiting, Denies chest pain, Capillary refill < 3 seconds Patient's skin is warm and dry. Pulses are all present. Respiratory: Airway is patent Breath sounds are clear bilaterally. GI: Abdomen is flat, non-distended, Bowel sounds present X 4 quads. Reports lower abdominal pain, upper abdominal pain. : No deficits noted. Derm: No deficits noted. Musculoskeletal: Range of motion: intact in all extremities. 13:18 Reassessment: Patient states feeling better. Patient states symptoms have improved. ke1 Pain: Complains of pain in abdomen Pain currently is 2 out of 10 on a pain scale. 14:15 Reassessment: Patient denies pain at this time. Patient states feeling better. Patient ke1 states symptoms have improved. Vital Signs: 12:41 BP 136 / 124; Pulse 81; Resp 20; Temp 99.0; Pulse Ox 100% on R/A; Weight 95.25 kg; ag7 Height 6 ft. 3 in. (190.50 cm); Pain 10/10; 13:15 BP 117 / 69; Pulse 55; Resp 20; Pulse Ox 96% on R/A; ke1 13:18 Pain 2/10; ke1 14:17 BP 125 / 73; Pulse 55; Resp 17; Pulse Ox 100% on R/A; ke1 12:41 Body Mass Index 26.25 (95.25 kg, 190.50 cm) ag7 ED Course: 12:37 Patient arrived in ED. eb 12:37 Ranjit Davis MD is Attending Physician. rn 12:43 Harvye Thompson RN is Primary Nurse. ke1 12:45 Triage completed. ag7 12:45 Maintain EMS IV. Dressing intact. Site clean \T\ dry. ke1 12:48 Arm band placed on left wrist. ag7 13:21 Bed in low position. Officer at bedside. ke1 14:26 No provider procedures requiring assistance completed. IV discontinued. ke1 Administered Medications: 12:55 Drug: Reglan (metoCLOPramide) 10 mg Route: IVP; Site: right antecubital; ke1 13:19 Follow up: Response: Nausea is decreased; Vomiting decreased ke1 12:55 Drug: Demerol (meperidine) 25 mg Route: IVP; Site: right antecubital; ke1 13:18 Follow up: Pain 2/10 Adult; Response: Pain is decreased ke1 12:55 Drug: NS 0.9% 1000 ml Route: IV; Rate: 1000 ml; Site: right antecubital; ke1 14:00 Follow up: IV Status: Completed infusion ke1 12:55 Drug: GI Cocktail without - (Maalox Suspension 30 ml, Lidocaine Liquid 2 % 15 ke1 ml) Route: PO; 13:19 Follow up: Response: Nausea is decreased; Vomiting decreased ke1 Outcome: 13:57 Discharge ordered by . rn 14:26 Discharged to Law Enforcement ke1 14:26 Condition: good 14:26 Discharge instructions given to police. 14:28 Patient left the ED. ke1 Signatures: Ranjit Davis MD MD rn Botello, Elizabeth eb Ebrottie, Kouassi, RN RN ke1 Essence Lira RN RN ag7
[2021-06-28 14:34] VITALS: TEMP 99
[2021-06-28 14:38] VITALS: BP 125/73; O2SAT 100
== END 2021-06-28 14:28 | disposition home or self-care (01) ==
LOC: ER 12:35
DX: R10.10 Upper abdominal pain, unspecified (principal); R11.10 Vomiting, unspecified
CPT/HCPCS: 36415; 80048; 80076; 82947; 83690; 85025; 96361; 96374; 96375; 99283; J2175; J2765; J7030

== ENCOUNTER 2021-11-06 12:24 | Emergency (ER) | payer SELFPAY ==
--- NOTE | 2021-11-06 15:27 | EDPHYS ---
Physician Documentation [facility] Name: Prashanth Bond Jr Age: 26 yrs Sex: Male : 1995 Arrival Date: 11/06/2021 Time: 12:43 Bed Waiting Private MD: ED Physician Rajeev Carter HPI: 11/06 14:38 This 26 yrs old Black Male presents to ER via Ambulatory with complaints of Abscess. kb 14:38 The patient presents with abdominal pain right groin. Onset: The symptoms/episode kb began/occurred 2 week(s) ago. The symptoms do not radiate. Associated signs and symptoms: none. The symptoms are described as constant. Modifying factors: The symptoms are alleviated by nothing, the symptoms are aggravated by movement, pressure, walking. Severity of pain: At its worst the pain was moderate in the emergency department the pain is unchanged. The patient has not experienced similar symptoms in the past. The patient has not recently seen a physician. Pt reports mass that started 2 weeks ago to right groin. c/o pain to area. ROS: 14:37 Constitutional: Negative for fever, chills, and weight loss. kb 14:37 Abdomen/GI: Positive for abdominal pain. 14:37 All other systems are negative. Exam: 14:37 Constitutional: This is a well developed, well nourished patient who is awake, alert, kb and in no acute distress. Head/Face: Normocephalic, atraumatic. ENT: Moist Mucous membranes Cardiovascular: Regular rate and rhythm with a normal S1 and S2. No gallops, murmurs, or rubs. No pulse deficits. Respiratory: Respirations even and unlabored. No increased work of breathing. Talking in full sentences Skin: Warm, dry with normal turgor. Normal color. MS/ Extremity: Pulses equal, no cyanosis. Neurovascular intact. Full, normal range of motion. Neuro: Awake and alert, GCS 15, oriented to person, place, time, and situation. Moves all extremities. Normal gait. Psych: Awake, alert, with orientation to person, place and time. Behavior, mood, and affect are within normal limits. 14:37 Abdomen/GI: Inspection: abdomen appears normal, Bowel sounds: normal, Palpation: abdomen is soft and non-tender, in all quadrants, Hernia: noted in the right inguinal area, tenderness, that is moderate. Vital Signs: 13:14 BP 131 / 65; Pulse 79; Resp 16; Temp 98.4; Pulse Ox 100% ; Weight 99.79 kg; Height 6 zm ft. 2 in. (187.96 cm); 13:14 Body Mass Index 28.25 (99.79 kg, 187.96 cm) zm MDM: 13:12 Patient medically screened. 14:37 Data reviewed: vital signs, nurses notes. Data interpreted: Pulse oximetry: on room air kb is 100 %. Interpretation: normal. 16:19 ED course: Pt left the lobby after evaluation, but before diagnostics could be started. sarita CN spoke to pt on the phone and he stated he did not want to wait in the lobby due to pain. He does not want to come back at this time. States he may come back later. . 11/06 13:54 Order name: IV Saline Lock sarita 11/06 13:54 Order name: Labs collected and sent Administered Medications: No medications were administered Disposition Summary: 11/06/21 15:27 Eloped Disposition: after being seen by provider eb Reason: wait time eb Addendum: 11/08/2021 13:50 Co-signature as Attending Physician, Rajeev Carter MD I agree with the assessment and c bush plan of care. Signatures: Dispatcher [employer] Anne Solis, LUCIO TILLMAN-Rajeev Akhtar MD MD cha Botello, Elizabeth eb
--- NOTE | 2021-11-06 15:27 | ER ---
Nurse's Notes [facility] Name: Prashanth Bond Jr Age: 26 yrs Sex: Male : 1995 Arrival Date: 11/06/2021 Time: 12:43 Bed Waiting Private MD: Diagnosis: Presentation: 11/06 13:38 Chief complaint: Patient states: 2 weeks ago developed right inguinal hernia. iw Coronavirus screen: At this time, the client does not indicate any symptoms associated with coronavirus-19. Ebola Screen: Patient negative for fever greater than or equal to 101.5 degrees Fahrenheit, and additional compatible Ebola Virus Disease symptoms Patient denies exposure to infectious person. Patient denies travel to an Ebola-affected area in the 21 days before illness onset. No symptoms or risks identified at this time. Initial Sepsis Screen: Does the patient meet any 2 criteria? No. Patient's initial sepsis screen is negative. Does the patient have a suspected source of infection? No. Patient's initial sepsis screen is negative. Risk Assessment: Do you want to hurt yourself or someone else? Patient reports no desire to harm self or others. 13:38 Method Of Arrival: Ambulatory iw 13:38 Acuity: ELIUD 4 iw 14:04 Acuity: ELIUD 3 iw Assessment: 14:37 Reassessment: called pt on phone, states he didn't want to wait in lobby and will come iw back later. Vital Signs: 13:14 BP 131 / 65; Pulse 79; Resp 16; Temp 98.4; Pulse Ox 100% ; Weight 99.79 kg; Height 6 zm ft. 2 in. (187.96 cm); 13:14 Body Mass Index 28.25 (99.79 kg, 187.96 cm) ED Course: 12:43 Patient arrived in ED. [id number] 13:03 [facility]ancilla [facility]C [facility] kb 13:03 Rajeev Carter MD is Attending Physician. kb 13:39 Triage completed. iw 14:37 Alix Astorga, RN is Primary Nurse. iw Administered Medications: No medications were administered Outcome: 15:26 Eloped from waiting room, after seeing physician Time discovered patient gone: November 062021 at 15:26 15:27 Patient left the ED. eb Signatures: Anne Mancilla FNP-C FNP-Ckb Williams Alix, RN RN iw Opal Ford Jennifer [email or web address] Kenna Baird
[2021-11-06 15:54] VITALS: BP 131/65; TEMP 98.4; O2SAT 100
== END 2021-11-06 15:27 | disposition left against medical advice (07) ==
LOC: ER 12:24
DX: R10.31 Right lower quadrant pain (principal)
CPT/HCPCS: 99281

== ENCOUNTER → 2023-05-22 | Emergency (ER) | payer SELFPAY ==
--- OUTSIDE RECORDS SUMMARY | 2023-05-22 14:20 | XMS REPORT | Continuity of Care Document ---
Author Name Unknown Address [address] [facility] [address] th[address] Address [address] [facility] [address] [place] [address] Care Team Providers Care Hospital Librarian Name Role Phone PCP, PATIENT DOES NOT HAVE A Primary Care Physic erica Unavailable AYANA LAKHANI Attending Clinician Unavailable Ayana Lakhani MD Attending Clinician Doctor Unassigned, [place] Attending Clinician U YANIV Martinez Attending Clinician Unavailable AYANA LAKHANI Admitting Clinician Unavailable Problems Condition Name Condition Details Condition Category Status Onset Date Resolution Date Last Treatment Date Treating Clinician Comments Source CARROLL (acute kidney injury) CARROLL (acute kidney injury) Disease Active 01-20 00:00: 00 [facility] Allergies, Adverse Reactions, Alerts Allergy Name Allergy Type Status Severity Reaction(s) Onset Date Inactive Date Treating Clinician Comments Source NO KNOWN ALLERGIE S Drug Class Active [facility] Social History Social Habit Start Date Stop Date Quantity Comments Source Exposure to SARS-CoV-2 (event) 2021-10-03 00:00:00 2021-10-13 21:27:00 Not sure [facility] Tobacco use and exposure 2020-01-21 00:00:00 2020-01-21 00:00:00 Never used [facility] Alcohol intake 2020-01-21 00:00:00 2020-01-21 00:00:00 Ex-drinker (finding) [facility] Sex Assigned At 1995 00:00:00 1995 00:00:00 [facility] Smoking Status Start Date Stop Date Source Never smoker [facility] Medications Ordered Medication Name Filled Medication Name Start Date Stop Date Current Medication? Ordering Clinician Indication Dosage Frequency Signature (SIG) Comments Components Source FENTanyl PF (SUBLIMAZE (PF)) injection 50 mcg 10-14 06:45: 00 10-14 05:38 :00 No 50ug 50 mcg, Slow IV Push, ONCE, 1 dose, On Tue10/14/21 at 0145, Routine [facility] iopamidol (ISOVUE 370-500 mL) injection 100 mL 10-14 05:45: 00 10-14 04:37 :00 No [id number] 100mL 100 mL, Intravenou s, ONCE, 1 dose, On Tue10/14/21 at 0045, Routine [facility] ondansetron (ZOFRAN (PF)) injection 4 mg 10-14 05:30: 00 10-14 04:55 :00 No 4mg 4 mg, Slow IV Push, ONCE, 1 dose, On Tue10/14/21 [facility] 0030[facility] 20 mg 10-14 05:30: 00 10-14 04:53 :00 No 20mg 20 mg, Intramuscu lar, ONCE NOW, 1 dose, On Tue10/14/21 at 0030, Routine [facility] NaCl 0.9% (NS) IV infusion 1,000 mL 10-14 03:45: 00 Yes 1000mL at 999 mL/hr, Intravenou s, CONTINUOUS , Starting on Tue10/13/21 at 2245, Until Discontinu ed, Routine [facility] acetaminoph en (TYLENOL) tablet 1,000 mg 10-14 02:34: 00 10-14 02:37 :00 No 1000mg 1,000 mg, Oral, ONCE, 1 dose, On Tue10/13/21 at 2145, CARMELO [facility] dicyclomine 20 mg tablet 10-14 00:00: 00 Yes [id number] 20mg Take 1 tablet by mouth every 6 (six) hours as needed for Abdominal pain. [facility] ondansetron (ZOFRAN) 4 mg tablet 10-14 00:00: 00 Yes [id number] 4mg Take 1 tablet by mouth every 8 (eight) hours as needed for Nausea and Vomiting (N/V). [facility] doxycycline hyclate 100 mg capsule 10-14 00:00: 00 Yes [id number] 100mg Take 1 capsule by mouth 2 (two) times daily. [facility] No known medications 2018-04 09:46: 10 No [facility] Vital Signs Vital Name Observation Time Observation Value Comments S robin Systolic blood pressure 2021-10-14 06:17:00 126 mm[Hg] [facility] Diastolic blood pressure 2021-10-14 06:17:00 56 mm[Hg] [facility] Heart rate 2021-10-14 06:17:00 55 /min [facility] Body temperature 2021-10-14 06:17:00 37 Monika [facility] Respiratory rate 2021-10-14 06:17:00 20 /min [facility] Oxygen saturation in Arterial blood by Pulse oximetry 2021-10-14 06:17:00 99 /min [facility] Body height 2021-10-14 02:27:00 188 cm [facility] Body weight 2021-10-14 02:27:00 99.791 kg [facility] BMI 2021-10-14 02:27:00 28.25 kg/m2 [facility] Procedures Procedure Date / Time Performed Performing Clinician Source CT ABDOMEN PELVIS W CONTRAST 2021-10-14 04:39:46 Ayana Lakhani [facility] CBC WITH DIFF 2021-10-14 03:44:00 Ayana Lakhani [facility] LIPASE 2021-10-14 03:43:00 Ayana Lakhani [facility] COMP. METABOLIC PANEL (65607) 2021-10-14 03:43:00 Ayana Lakhani [facility] URINALYSIS 2021-10-14 03:43:00 Ayana Lakhani [facility] COVID-19 (ID NOW RAPID TESTING) 2021-10-14 02:37:00 Ayana Lakhani [facility] NOTICE OF PRIVACY PRACTICES 2021-10-14 02:24:41 Doctor Unassigned, [place] [facility] CONSENT/REFUSAL FOR DIAGNOSIS AND TREATMENT 2021-10-14 02:19:33 Doctor Unassigned, [place] [facility] AUTHORIZATION FOR RELEASE OF PHI 2021-07-22 05:01:00 Doctor Unassigned, [place] [facility] Encounters Start Date/Time End Date/Time Encounter Type Admission Type Attending Clinicians Care Facility Care Department Encounter ID Source 2021-10-13 21:26:00 2021-10-14 01:24:00 Emergency X AYANA LAKHANI [facility] ERT [id number] [facility] 2021-10-13 21:26:00 2021-10-14 01:24:00 Emergency Ayana Lakhani [facility] [id number] [facility] 2021-07-22 00:00:00 2021-07-22 00:00:00 Orders Only Doctor Unassigned, [place] [facility] [id number] [id number] [facility] 2020-01-21 07:45:00 2020-01-21 07:45:00 Outpatient X YANIV FRANCISCO [facility] ERT [id number] [facility] Results Test Description Test Time Test Comments Results Result Co mments Source [facility] Test Item Value Reference Range Interpretation Comme nts LIPASE (test code = 4863042759) 37 U/L 0-220 Lab Interpretation (test cod e = 46311-3) [facility] [id number] 04:03:12* Test Item Value Reference Range Interpretation Comme nts WBC (test code = 6690-2) See_Comment [Automated messa ge] The system which generated this result transmitted reference range: 4.20 - 10.70 10*3/?L. The reference range was not used to interpret this result as normal/abnormal. RBC (test code = 789-8) See_Comment [Automated messa ge] The system which generated this result transmitted reference range: 4.26 - 5.52 10*6/?L. The reference range was not used to interpret this result as normal/abnormal. HGB (test code = 718-7) 11.6 g/dL 12.2-16.4 L HCT (test code = 4544-3) 36.0 % 38.4-49.3 L MCV (test code = 787-2) 83.9 fL 81.7-95.6 MCH (test code = 785-6) 27.0 pg 26.1-32.7 MCHC (test code = 786-4) 32.2 g/dL 31.2-35.0 RDW-SD (test code = 94944-8) 45.6 fL 38.5-51.6 RDW-CV (test code = 788-0) 14.8 % 12.1-15.4 PLT (test code = 777-3) See_Comment [Automated messa ge] The system which generated this result transmitted reference range: 150 - 328 10*3/?L. The reference range was not used to interpret this result as normal/abnormal. MPV (test code = 58313-4) 10.6 fL 9.8-13.0 NRBC/100 WBC (test code = 2441892827) See_Comment [Automated Qoopl ssage] The system which generated this result transmitted reference range: 0.0 - 10.0 /100 WBCs. The reference range was not used to interpret this result as normal/abnormal. NRBC x10^3 (test code = 9324089587) <0.01 See_Comment [Automated messa ge] The system which generated this result transmitted reference range: 10*3/?L. The reference range was not used to interpret this result as normal/abnormal. GRAN MAT (NEUT) % (test code = 770-8) 72.4 % IMM GRAN % (test code = 3456123879) 0.60 % LYMPH % (test code = 736-9) 14.4 % MONO % (test code = 5905-5) 12.3 % EOS % (test code = 713-8) 0.1 % BASO % (test code = 706-2) 0.2 % GRAN MAT x10^3(ANC) (test code = 6464840292) 6.79 10*3/uL 1.99-6.95 IMM GRAN x10^3 (test code = 9775802754) 0.06 10*3/uL 0.00-0.06 LYMPH x10^3 (test code = 731-0) 1.35 10*3/uL 1.09-3.23 MONO x10^3 (test code = 742-7) 1.15 10*3/uL 0.36-1.02 H EOS x10^3 (test code = 711-2) <0.03 0.06-0.53 L BASO x10^3 (test code = 704-7) <0.03 0.01-0.09 Lab Interpretation (test code = 86907-2) Abnormal [facility]
--- NOTE | 2023-05-22 15:46 | ER ---
Nurse's Notes [facility] Name: Prashanth Bond Jr Age: 27 yrs Sex: Male : 1995 Arrival Date: 05/22/2023 Time: 14:17 Bed IW2 Private MD: Diagnosis: Presentation: 05/22 14:24 Chief complaint: EMS states: Abdominal pain and N/V x 3 days, pain is worse today. VS hb WNL. NS 300, Zofran 4 mg, and Phenergan 12.5 mg administered to 20g R wrist TECHNICAL SUPPORT CONSULTANT. BGL 99. Coronavirus screen: At this time, the client does not indicate any symptoms associated with coronavirus-19. Ebola Screen: No symptoms or risks identified at this time. Initial Sepsis Screen: Does the patient meet any 2 criteria? No. Patient's initial sepsis screen is negative. Does the patient have a suspected source of infection? No. Patient's initial sepsis screen is negative. Risk Assessment: Do you want to hurt yourself or someone else? Patient reports no desire to harm self or others. Onset of symptoms was May 21, 2023. 14:24 Method Of Arrival: EMS: [facility] hb 14:24 Acuity: ELIUD 3 hb Historical: - Allergies: 14:27 No Known Drug Allergies; hb - PMHx: 14:27 ADD/ADHD; chronic nausea and vomiting; hb Vital Signs: 14:24 BP 140 / 78; Pulse 80; Resp 16; Temp 98.1(O); Pulse Ox 100% on R/A; Pain 8/10; hb 14:24 Pain Scale: Adult hb ED Course: 14:18 Patient arrived in ED. mr 14:27 Triage completed. hb 14:38 Kristan Tovar PA-C is PHCP. sb4 14:38 Miguel Vegas MD is Attending Physician. sb4 15:15 Kendra Ge is Primary Nurse. cp4 15:34 Patient's name was called from ER lobby. No response. as6 15:45 Patient's name was called from ER lobby. No response. Unable to locate patient. Will hb disposition as left without being seen by a provider. Administered Medications: No medications were administered Outcome: 15:45 Patient left the ED. hb Signatures: Laila Abreu, Reg Reg Andria Damon, RN RN hb Celso Torres, RN RN as6 Kristan Tovar, JESUS PA-C sb4 Kendra Ge cp4
[2023-05-22 18:03] VITALS: BP 140/78; TEMP 98.1; O2SAT 100
== END ==
LOC: ER 14:17
DX: Z02.9 Encounter for administrative examinations, unspecified (principal)

== ENCOUNTER 2023-10-11 09:16 | Emergency (ER) | payer SELFPAY ==
--- OUTSIDE RECORDS SUMMARY | 2023-10-11 09:19 | XMS REPORT | Continuity of Care Document ---
Author Name Unknown Address [address] [facility] [address] th[address] Address [address] [facility] [address] [place] [address] Care Team Providers Care Ingot Weigher Name Role Phone PCP, PATIENT DOES NOT HAVE A Primary Care Physic erica Unavailable FREDA GONZALEZ Attending Clinician RYANNE Lopez Attending Clinician UnaTRICIA Shetty Attending Clinician Unavailable LAB90 Attending Clinician Unavailable MD MARIELA Attending Clinician Unavailab MYRNA Kevin Attending Clinician Unavailable Myrna Granado MD Attending Clinician Doctor Unassigned, [place] Attending Clinician U YANIV Martinez Attending Clinician Unavailable MYRNA GRANADO Admitting Clinician Unavailable Payers Payer Name Policy Type Policy Number Effective Date Expirati on Date Source [employer] MP [facility] [id number] 2023 00:00:00 Problems Condition Name Condition Details Condition Category Status Onset Date Resolution Date Last Treatment Date Treating Clinician Comments Source Current mild episode of major depressive disorder without prior episode Current mild episode of major depressive disorder without prior episode Disease Active 2- 00:00: 00 Abeba ambriz ADHD ADHD Disease Active - 00:00: 00 Abeba Seybold - Externa l CARROLL (acute kidney injury) CARROLL (acute kidney injury) Disease Active 01-20 00:00: 00 [facility] Allergies, Adverse Reactions, Alerts Allergy Name Allergy Type Status Severity Reaction(s) Onset Date Inactive Date Treating Clinician Comments Source NO KNOWN ALLERGIE S Drug Class Active [facility] Social History Social Habit Start Date Stop Date Quantity Comments Source Sexual orientation Aydee zuñiga Pee - External History of tobacco use Cigarette Smoker Abeba baez - External Alcohol intake 2023-06-02 00:00:00 2023-06-02 00:00:00 Current drinker of alcohol (finding) Abeba Glasgow - External History of Social function 2023-01-10 00:00:00 2023-01-10 00:00:00 Abeba Fry Cigarettes smoked current (pack per day) - Reported 2022-12-17 00:00:00 2022-12-17 00:00:00 Abeba Eagle External Cigarette pack-years 2022-12-17 00:00:00 2022-12-17 00:00:00 Abeba Glasgow - External Tobacco use and exposure 2022-12-17 00:00:00 2022-12-17 00:00:00 Smokeless tobacco non-user Abeba Eagle External Alcohol Comment 2022-12-17 00:00:00 2022-12-17 00:00:00 occasionally Abeba Glasgow - External Exposure to SARS-CoV-2 (event) 2021-10-03 00:00:00 2021-10-13 21:27:00 Not sure [facility] Sex Assigned At 1995 00:00:00 1995 00:00:00 Abeba Eagle External Smoking Status Start Date Stop Date Source Smokes tobacco daily 2022-12-17 00:00:00 Abeba Eagle External Never smoker [facility] Medications Ordered Medication Name Filled Medication Name Start Date Stop Date Current Medication? Ordering Clinician Indication Dosage Frequency Signature (SIG) Comments Components Source Pantoprazol e Sodium 40 MG oral Tablet Delayed Response 06-02 00:00: 00 Yes [id number] 40mg Take 1 tablet (40 mg total) by mouth daily. Abeba ambriz Escitalopra m Oxalate 10 MG oral Tablet 2-08 00:00: 00 Yes [id number] 10mg Take 1 tablet (10 mg total) by mouth daily. Abeba ambriz FENTanyl PF (SUBLIMAZE (PF)) injection 50 mcg 10-14 06:45: 00 10-14 05:38 :00 No 50ug 50 mcg, Slow IV Push, ONCE, 1 dose, On Tue10/14/21 at 0145, [facility] 370-500 mL) injection 100 mL 10-14 05:45: 00 10-14 04:37 :00 No [id number] 100mL 100 mL, Intravenou s, ONCE, 1 dose, On Tue10/14/21 at 0045, Routine [facility] ondansetron (ZOFRAN (PF)) injection 4 mg 10-14 05:30: 00 10-14 04:55 :00 No 4mg 4 mg, Slow IV Push, ONCE, 1 dose, On Tue10/14/21 at 0030, [facility] dicyclomine (BENTYL) injection 20 mg 10-14 05:30: 00 10-14 04:53 :00 No 20mg 20 mg, Intramuscu lar, ONCE NOW, 1 dose, On Tue10/14/21 at 0030, Routine [facility] NaCl 0.9% (NS) IV infusion 1,000 mL 10-14 03:45: 00 Yes 1000mL at 999 mL/hr, Intravenou s, CONTINUOUS , Starting on Tue10/13/21 at 2245, Until Discontinu ed, Routine [facility] acetaminoph en (TYLENOL) tablet 1,000 mg 10-14 02:34: 00 10-14 02:37 :00 No 1000mg 1,000 mg, Oral, ONCE, 1 dose, On Tue10/13/21 at 2145, [facility] dicyclomine 20 mg tablet 10-14 00:00: 00 Yes [id number] 20mg Take 1 tablet by mouth every 6 (six) hours as needed for Abdominal pain. [facility] ondansetron (ZOFRAN) 4 mg tablet 10-14 00:00: 00 Yes [id number] 4mg Take 1 tablet by mouth every 8 (eight) hours as needed for Nausea and Vomiting (N/V). [facility] doxycycline hyclate 100 mg capsule 10-14 00:00: 00 Yes [id number] 100mg Take 1 capsule by mouth 2 (two) times daily. [facility] No known medications 2018-04 09:46: 10 No [facility] Vital Signs Vital Name Observation Time Observation Value Comments S ource Systolic blood pressure 2023-06-02 16:21:00 100 mm[Hg] Abeba Seybo ld - External Diastolic blood pressure 2023-06-02 16:21:00 59 mm[Hg] Abeba ybo ld - External Heart rate 2023-06-02 16:21:00 73 /min Belinda Ramirezsasha - External Body temperature 2023-06-02 16:21:00 36.61 Monika Abeba Noonanybold - External Respiratory rate 2023-06-02 16:21:00 21 /min Abeba appleold - External Body height 2023-06-02 16:21:00 190.5 cm Bia ifeanyi Noonanybold - External Body weight 2023-06-02 16:21:00 82.645 kg Bia ifeanyi Noonanybold - External BMI 2023-06-02 16:21:00 22.77 kg/m2 Bia ifeanyi Noonanybold - External Oxygen saturation in Arterial blood by Pulse oximetry 2023-06-02 16:21:00 100 /min Abeba appleo ld - External Systolic blood pressure 2021-10-14 06:17:00 126 mm[Hg] [facility] Diastolic blood pressure 2021-10-14 06:17:00 56 mm[Hg] [facility] Heart rate 2021-10-14 06:17:00 55 /min [facility] Body temperature 2021-10-14 06:17:00 37 Monika [facility] Respiratory rate 2021-10-14 06:17:00 20 /min [facility] Oxygen saturation in Arterial blood by Pulse oximetry 2021-10-14 06:17:00 99 /min [facility] Body height 2021-10-14 02:27:00 188 cm [facility] Body weight 2021-10-14 02:27:00 99.791 kg [facility] BMI 2021-10-14 02:27:00 28.25 kg/m2 [facility] Procedures Procedure Date / Time Performed Performing Clinician Source CT ABDOMEN PELVIS W CONTRAST 2021-10-14 04:39:46 Myrna Granado [facility] CBC WITH DIFF 2021-10-14 03:44:00 Myrna Granado [facility] LIPASE 2021-10-14 03:43:00 Myrna Granado [facility] COMP. METABOLIC PANEL ([id number]) 2021-10-14 03:43:00 Myrna Granado [facility] URINALYSIS 2021-10-14 03:43:00 Myrna Granado [facility] COVID-19 (ID NOW RAPID TESTING) 2021-10-14 02:37:00 Myrna Granado [facility] NOTICE OF PRIVACY PRACTICES 2021-10-14 02:24:41 Doctor Unassigned, [place] [facility] CONSENT/REFUSAL FOR DIAGNOSIS AND TREATMENT 2021-10-14 02:19:33 Doctor Unassigned, [place] [facility] AUTHORIZATION FOR RELEASE OF PHI 2021-07-22 05:01:00 Doctor Unassigned, [place] [facility] Encounters Start Date/Time End Date/Time Encounter Type Admission Type Attending Clinicians Care Facility Care Department Encounter ID Source 2023-11-02 15:30:00 2023-11-02 15:30:00 Outpatient FREDA GONZALEZ [id number] Abeba [place] 2023-08-29 13:30:00 2023-08-29 13:30:00 Outpatient RYANNE LION [id number] Abeba [place] 2023-06-30 00:00:00 2023-06-30 00:00:00 Outpatient RYANNE LION ABEBA SPEAR [id number] Abeba Glasgow 2023-06-16 11:30:00 2023-06-16 11:30:00 Outpatient TRICIA JADE ABEBA SPEAR [id number] Abeba [place] 2023-06-07 00:00:00 2023-06-07 00:00:00 Outpatient RYANNE LION ABEBA SPEAR [id number] Abeba Noonansasha 2023-06-03 00:00:00 2023-06-03 00:00:00 Outpatient RYANNE LION ABEBA SPEAR [id number] Abeba Pee 2023-06-02 11:00:00 2023-06-02 11:00:00 Outpatient CATARINO ABEBA SPEAR [id number] Abeba Pee 2023-06-02 10:15:00 2023-06-02 10:15:00 Outpatient RYANNE LION [facility] [id number] [facility]23-[facility]-02 00:00:00 2023-06-02 00:00:00 Outpatient ABEBA SPEAR [id number] Abeba Pee 2022-12-20 15:45:00 2022-12-20 15:45:00 Outpatient RYANNE LION [facility] SPEAR [id number] [facility] 2022-12-16 00:00:00 2022-12-16 00:00:00 Outpatient MD ABEBA MANCUSO [id number] Abeba [facility] 2022-12-08 00:00:00 2022-12-08 00:00:00 Outpatient AMISHARYANNE MENDEZ ABEBA SPEAR [id number] Abeba [facility] 2021-10-13 21:26:00 2021-10-14 01:24:00 Emergency X MYRNA GRANADO [facility] ERT [id number] [facility] 2021-10-13 21:26:00 2021-10-14 01:24:00 Emergency Myrna Granado [facility] [id number] [facility] 2021-07-22 00:00:00 2021-07-22 00:00:00 Orders Only Doctor Unassigned, [place] [facility] [id number] [id number] [facility] 2020-01-21 07:45:00 2020-01-21 07:45:00 Outpatient X YANIV FRANCISCO [facility] ERT [id number] [facility] Results Test Description Test Time Test Comments Results Result Co mments [facility]* Test Item Value Reference Range Interpretation Comme nts LIPASE (test code = 5462138427) 37 U/L 0-220 Lab Interpretation (test cod e = 74726-6) [facility] [id number] 04:03:12* Test Item Value Reference Range Interpretation Comme nts WBC (test code = 6690-2) See_Comment [Automated Pixafya ge] The system which generated this result transmitted reference range: 4.20 - 10.70 10*3/?L. The reference range was not used to interpret this result as normal/abnormal. RBC (test code = 789-8) See_Comment [Automated Pixafya ge] The system which generated this result [...] 32.2 g/dL 31.2-35.0 RDW-SD (test code = 62447-1) 45.6 fL 38.5-51.6 RDW-CV (test code = 788-0) 14.8 % 12.1-15.4 PLT (test code = 777-3) See_Comment [Automated Pixafya ge] The system which generated this result transmitted reference range: 150 - 328 10*3/?L. The reference range was not used to interpret this result as normal/abnormal. MPV (test code = 16946-0) 10.6 fL 9.8-13.0 NRBC/100 WBC (test code = 1844683365) See_Comment [Automated TrueSpan ssage] The system which generated this result transmitted reference range: 0.0 - 10.0 /100 WBCs. The reference range was not used to interpret this result as normal/abnormal. NRBC x10^3 (test code = 4907462587) <0.01 See_Comment [Automated Pixafya ge] The system which generated this result transmitted reference range: 10*3/?L. The reference range was not used to interpret this result as normal/abnormal. GRAN MAT (NEUT) % (test code = 770-8) 72.4 % IMM GRAN % (test code = 4848245955) 0.60 % LYMPH % (test code = 736-9) 14.4 % MONO % (test code = 5905-5) 12.3 % EOS % (test code = 713-8) 0.1 % BASO % (test code = 706-2) 0.2 % GRAN MAT x10^3(ANC) (test code = 2463796053) 6.79 10*3/uL 1.99-6.95 IMM GRAN x10^3 (test code = 9854865956) 0.06 10*3/uL 0.00-0.06 LYMPH x10^3 (test code = 731-0) 1.35 10*3/uL 1.09-3.23 MONO x10^3 (test code = 742-7) 1.15 10*3/uL 0.36-1.02 H EOS x10^3 (test code = 711-2) <0.03 0.06-0.53 L BASO x10^3 (test code = 704-7) <0.03 0.01-0.09 Lab Interpretation (test code = 06963-6) Abnormal [facility]
[2023-10-11 12:32] VITALS: BP 117/66; TEMP 97.8; O2SAT 100
--- NOTE | 2023-10-11 18:01 | EDPHYS ---
Physician Documentation [facility] Name: Prashanth Bond Jr Age: 28 yrs Sex: Male : 1995 Arrival Date: 10/11/2023 Time: 09:16 Bed IW7 Private MD: ED Physician Ranjit Davis HPI: 10/10 11:27 This 28 yrs old Black Male presents to ER via Ambulatory with complaints of Knee Pain. rn 11:27 The patient presents with decreased range of motion, an injury, pain. The complaints rn affect the left knee. Onset: The symptoms/episode began/occurred yesterday. Modifying factors: The symptoms are alleviated by nothing. the symptoms are aggravated by weight bearing, bending knee. Severity of symptoms: At their worst the symptoms were moderate, in the emergency department the symptoms are unchanged. The patient has experienced similar episodes in the past. The patient has not recently seen a physician. Patient reports chronic left knee pain from previous knee injury years ago, was playing basketball yesterday jumped and landed on left knee, knee gave out. Denies weakness. Pain with ambulation and range of motion.. Historical: - Allergies: 09:50 No Known Allergies; iw - PMHx: 09:47 ADD/ADHD; chronic nausea and vomiting; iw - Family history:: not pertinent. - Hospitalizations: : No recent hospitalization is reported. ROS: 11:27 Constitutional: Negative for fever, chills, and weight loss, MS/Extremity: Positive for rn left knee pain and injury Skin: Negative for injury, rash, and discoloration, Exam: 11:27 Constitutional: This is a well developed, well nourished patient who is awake, alert, rn and in no acute distress. MS/ Extremity: Pulses equal, no cyanosis. Neurovascular intact. Painful active and passive range of motion of the left knee with tenderness medial proximal tibial region. No warmth. No open wounds. No tenderness of patella. Able to fully extend knee on his own. Vital Signs: 09:46 BP 117 / 66; Pulse 62; Resp 16; Temp 97.8; Pulse Ox 100% on R/A; iw MDM: 09:39 Patient medically screened. rn 12:24 Differential diagnosis: closed fracture, contusion. Data reviewed: vital signs, nurses rn notes. ED course: Patient called multiple times for x-ray and by triage nurse as well as charge nurse, did not answer. Waited 3 hours to be sure and will close chart. Patient eloped.. Administered Medications: No medications were administered Disposition Summary: 10/11/23 12:26 Eloped Notes: Disposition: after being seen by provider rn Problem: new rn Symptoms: are unchanged rn Reason: unknown rn Condition: Stable rn Diagnosis - Pain in left knee rn Followup: rn - With: Private Physician - When: As needed - Reason: Recheck today's complaints, Re-evaluation by your physician Signatures: Dispatcher [employer] Alix Hector RN RN Ranjit Tucker MD MD varnish filterer: (The following items were deleted from the chart) 09:50 09:50 Knee Left 3 View+RAD.RAD.BRZ ordered. [facility]
--- NOTE | 2023-10-11 18:01 | ER ---
Nurse's Notes [facility] Name: Prashanth Bond Jr Age: 28 yrs Sex: Male : 1995 Arrival Date: 10/11/2023 Time: 09:16 Bed IW7 Private MD: Diagnosis: Pain in left knee Presentation: 10/10 09:46 Chief complaint: Patient states: was playing basketball yesterday and hurt his left iw knee. Coronavirus screen: At this time, the client does not indicate any symptoms associated with coronavirus-19. Ebola Screen: No symptoms or risks identified at this time. Initial Sepsis Screen: Does the patient meet any 2 criteria? No. Patient's initial sepsis screen is negative. Does the patient have a suspected source of infection? No. Patient's initial sepsis screen is negative. Risk Assessment: Do you want to hurt yourself or someone else? Patient reports no desire to harm self or others. Onset of symptoms was October 10, 2023. 09:46 Method Of Arrival: Ambulatory iw 09:46 Acuity: ELIUD 4 iw Historical: - Allergies: 09:50 No Known Allergies; iw - PMHx: 09:47 ADD/ADHD; chronic nausea and vomiting; iw - Family history:: not pertinent. - Hospitalizations: : No recent hospitalization is reported. Assessment: 11:08 Reassessment: pt not in lobby. iw 12:10 Reassessment: pt not in lobby, called xray, states they have called pt twice and he was iw not in lobby. Vital Signs: 09:46 BP 117 / 66; Pulse 62; Resp 16; Temp 97.8; Pulse Ox 100% on R/A; iw ED Course: 09:20 Patient arrived in ED. im 09:39 Ranjit Davis MD is Attending Physician. rn 09:47 Triage completed. iw 09:47 Arm band placed on. iw 11:18 Radiology exam delayed due to pt unable to be found at this time. rs4 12:26 Alix Astorga RN is Primary Nurse. iw Administered Medications: No medications were administered Outcome: 12:27 Eloped from waiting room, after seeing physician Time discovered patient gone: October 102023 at 12:27 12:28 Patient left the ED. iw Signatures: Alix Astorga RN RN iw Ranjit Davis MD MD rn Schwartz Krystyna rs4 Kathia Isaac im
== END 2023-10-11 12:28 | disposition left against medical advice (07) ==
LOC: ER 09:16
DX: M25.562 Pain in left knee (principal)